=== PATIENT | male | born 1945 | race Caucasian/White ===

== ENCOUNTER 2018-04-09 08:21 | Emergency (ER) | payer MEDICARE ==
[~2018-04-09] VITALS: Ht 182.9 cm; Wt 95.3 kg
[2018-04-09] MEDS ORDERED: AMPICILLIN SOD/SULBACTAM 1.5GM 50 ML IV ONE (09:15)
[2018-04-09] MEDS ORDERED: PIPER-TAZ 3.375 GM 50 ML IV ONE (09:15)
[2018-04-09 11:27] VITALS: BP 110/79
== END 2018-04-09 11:15 | disposition home or self-care (01) ==
LOC: ER 08:21
DX: S00.87XA Other superficial bite of other part of head, initial encounter (principal); S60.470A Other superficial bite of right index finger, initial encounter; W55.01XA Bitten by cat, initial encounter; Y92.009 Unspecified place in unspecified non-institutional (private) residence as the place of occurrence of the external cause
CPT/HCPCS: 99283; J2543; J0295

== ENCOUNTER 2023-05-05 09:47 | Emergency (ER) | payer MEDICARE ==
[~2023-05-05] VITALS: Ht 185.4 cm; Wt 95.3 kg
[2023-05-05 10:40] LABS: BASOPHILS % 0.2 % (0.0-1.0); EOSINOPHILS # (AUTO) 0.1 (0.0-0.4); EOSINOPHILS % 1.3 % (0.0-6.0); HEMATOCRIT 35.7 % (38.2-49.6); LYMPHOCYTES # (AUTO) 1.3 (1.0-3.2); LYMPHOCYTES % 14.7 % (18.0-39.1); MEAN CORPUSCULAR HEMOGLOBIN 29.9 pg (28-32); MEAN CORPUSCULAR HGB CONC 33.6 g/dL (31-35); MONOCYTES # (AUTO) 0.8 (0.2-0.8); MONOCYTES % 9.4 % (4.4-11.3); NEUTROPHILS # (AUTO) 6.6 (2.1-6.9); PLATELET COUNT 133 x10e3/uL (140-360); RED BLOOD COUNT 4.01 x10e6/uL (4.3-5.7); RED CELL DISTRIBUTION WIDTH 13.7 % (11.7-14.4); WHITE BLOOD COUNT 8.94 x10e3/uL (4.8-10.8)
[2023-05-05 10:56] LABS: INR 2.34; PARTIAL THROMBOPLASTIN TIME 37.4 seconds (23.8-35.5); PROTHROMBIN TIME 27.1 seconds (11.9-14.5)
[2023-05-05 10:59] LABS: ALBUMIN 3.4 g/dL (3.5-5.0); ALBUMIN/GLOBULIN RATIO 1.3 (0.8-2.0); ANION GAP 11.2 mmol/L (8-16); CALCIUM 8.6 mg/dL (8.4-10.2); CREATININE, SERUM 1.07 mg/dL (0.72-1.25); MAGNESIUM 2.1 MG/DL (1.3-2.1); POTASSIUM 4.2 mmol/L (3.5-5.1)
[2023-05-05 14:29] VITALS: O2SAT 98
== END 2023-05-05 14:41 | disposition other institution (70) ==
LOC: ER 09:56
DX: R53.1 Weakness (principal); I63.9 Cerebral infarction, unspecified; I48.91 Unspecified atrial fibrillation; Z20.822 Contact with and (suspected) exposure to COVID-19; Z79.01 Long term (current) use of anticoagulants; R94.31 Abnormal electrocardiogram [ECG] [EKG]
CPT/HCPCS: 36415; 70450; 71045; 80053; 82550; 83735; 84484; 85025; 85610; 85730; 93005; 99284; U0002